=== PATIENT | male | born 1955 | race African-American/Black ===

== ENCOUNTER 2019-08-20 07:35 | Emergency (ER) | payer MEDICAID ==
[~2019-08-20] VITALS: Ht 175.3 cm; Wt 90.0 kg
[2019-08-20 10:42] LABS: BASOPHILS % 0.5 % (0.0-2.0); EOSINOPHILS % 1.2 % (0.0-5.0); HEMATOCRIT. 45.6 % (42.0-52.0); HEMOGLOBIN. 14.8 g/dL (14.0-18.0); LYMPHOCYTES % 19.4 % (20.0-50.0); MEAN CORPUSCULAR HEMOGLOBIN 29.8 pg (28.0-32.0); NEUTROPHILS % 70.9 % (40.0-76.0); RED BLOOD CELL COUNT 4.96 mill/uL (4.7-6.1); RED CELL DISTRIBUTION WIDTH 15.8 % (11.6-14.6)
[2019-08-20 10:44] LABS: CHLORIDE 109 mEq/L (98-107)
[2019-08-20] MEDS ORDERED: ACETAMINOPHEN 325MG TABLET PO ONE (11:30)
[2019-08-20 11:37] LABS: MEAN PLATELET VOLUME 10.6 fl (7.4-10.4); PLATELET 141 x1000/uL (130-400)
[2019-08-20 11:38] LABS: PLATELET ESTIMATE NORMAL
[2019-08-20 11:49] VITALS: BP 165/87
== END 2019-08-20 12:29 | disposition home or self-care (01) ==
LOC: ER 07:35
DX: G89.29 Other chronic pain (principal); M79.672 Pain in left foot; M79.671 Pain in right foot; I10 Essential (primary) hypertension; F17.210 Nicotine dependence, cigarettes, uncomplicated
CPT/HCPCS: 36415; 71045; 80048; 83880; 85025; 93970; 99284

== ENCOUNTER 2020-07-19 19:16 | Emergency (ER) | payer MEDICAID ==
[~2020-07-19] VITALS: Ht 177.8 cm; Wt 117.0 kg
[2020-07-19] MEDS ORDERED: ALBUTEROL (0.083%) 2.5MG/3ML NEB HHN STA (19:27)
[2020-07-19] MEDS ORDERED: METHYLPREDNISOLONE SOD SUCC 125 MG/2 ML VIAL IV STA (19:27)
[2020-07-19] MEDS ORDERED: IPRATROPIUM BROMIDE (0.02%) 0.5MG/2.5ML NEB HHN STA (19:27)
[2020-07-19 21:06] LABS: BASOPHILS % 0.3 % (0.0-2.0); EOSINOPHILS % 2.1 % (0.0-5.0); HEMATOCRIT. 38.4 % (42.0-52.0); HEMOGLOBIN. 12.8 g/dL (14.0-18.0); MEAN CORPUSCULAR HEMOGLOBIN 32.3 pg (28.0-32.0); MEAN CORPUSCULAR VOLUME 96.7 fL (80.0-94.0); MEAN PLATELET VOLUME 11.6 fl (7.4-10.4); MONOCYTES % 14.5 % (2.0-8.0); NEUTROPHILS % 68.1 % (40.0-76.0); PLATELET 211 x1000/uL (130-400); RED BLOOD CELL COUNT 3.97 mill/uL (4.7-6.1); RED CELL DISTRIBUTION WIDTH 15.3 % (11.6-14.6)
[2020-07-19 21:13] LABS: CHLORIDE 108 mEq/L (98-107)
[2020-07-19] MEDS ORDERED: ONDANSETRON HCL 4MG/2ML INJ IV PRN (23:15)
[2020-07-19] MEDS ORDERED: ALBUTEROL 6.7GM HFA INHALER ORI PRN (23:15)
[2020-07-19] MEDS ORDERED: ACETAMINOPHEN 325MG TABLET PO PRN (23:15)
[2020-07-20] MEDS ORDERED: METHYLPREDNISOLONE SOD SUCC 40 MG/ML VIAL IV SCH (04:00)
[2020-07-20 05:00] VITALS: BP 182/109
[2020-07-20] MEDS ORDERED: LOSARTAN POTASSIUM 100 MG TABLET PO SCH (12:00)
== END 2020-07-20 12:13 | disposition home or self-care (01) ==
LOC: ER 19:16 → EDBEDREQTM 22:00 → EDBEDREQ 22:00 → ENRESERV 07-20 10:29 → ER 07-20 12:13 → CANBEDREQ 07-21 16:07
DX: J44.1 Chronic obstructive pulmonary disease with (acute) exacerbation (principal); R06.03 Acute respiratory distress; I10 Essential (primary) hypertension; F17.210 Nicotine dependence, cigarettes, uncomplicated; Z71.6 Tobacco abuse counseling; Z20.828 Contact with and (suspected) exposure to other viral communicable diseases
CPT/HCPCS: 36415; 71045; 80053; 83880; 84484; 85025; 87635; 94640; 96374; 96376; 99285; 99406; J2920; J2930; Z7610

== ENCOUNTER 2021-07-15 | Inpatient (IN) | payer MEDICAID ==
[~2021-07-15] VITALS: Ht 182.9 cm; Wt 114.3 kg
[2021-07-15 03:04] LABS: BASOPHILS % 0.4 % (0.0-2.0); HEMATOCRIT. 43.6 % (42.0-52.0); HEMOGLOBIN. 13.9 g/dL (14.0-18.0); LYMPHOCYTES % 7.9 % (20.0-50.0); MEAN CORPUSCULAR HEMOGLOBIN 31.2 pg (28.0-32.0); MEAN CORPUSCULAR VOLUME 97.6 fL (80.0-94.0); MEAN PLATELET VOLUME 10.6 fl (7.4-10.4); MONOCYTES % 9.2 % (2.0-8.0); NEUTROPHILS % 82.5 % (40.0-76.0); PLATELET 208 x1000/uL (130-400); RED BLOOD CELL COUNT 4.47 mill/uL (4.7-6.1); RED CELL DISTRIBUTION WIDTH 16.6 % (11.6-14.6)
[2021-07-15 03:12] LABS: CHLORIDE 106 mEq/L (98-107)
[2021-07-15] MEDS ORDERED: IPRATROPIUM BROMIDE (0.02%) 0.5MG/2.5ML NEB HHN STA (05:43)
[2021-07-15] MEDS ORDERED: MAGNESIUM 2 G PREMIX 50 ML IV ONE (05:45)
[2021-07-15] MEDS ORDERED: FUROSEMIDE 40MG/4ML VIAL IVP ONE (05:45)
[2021-07-15] MEDS ORDERED: ALBUTEROL (0.083%) 2.5MG/3ML NEB HHN SCH (06:00)
[2021-07-15] MEDS ORDERED: CEFTRIAXONE 1 G PREMIX 50 ML IV ONE (06:45)
[2021-07-15] MEDS ORDERED: AZITHROMYCIN 500MG/250ML 250 ML IV ONE (06:45)
[2021-07-15] MEDS ORDERED: METHYLPREDNISOLONE SOD SUCC 125 MG/2 ML VIAL IV STA (07:29)
[2021-07-15] MEDS ORDERED: HYDRALAZINE 20MG/ML VIAL IV PRN ×2 (13:30)
[2021-07-15] MEDS ORDERED: ONDANSETRON HCL 4MG/2ML INJ IV PRN (14:00)
[2021-07-15] MEDS ORDERED: ACETAMINOPHEN 325MG TABLET PO PRN (14:00)
[2021-07-15] MEDS: AMLODIPINE 10MG TABLET PO SCH (14:40)
[2021-07-15] MEDS: ENOXAPARIN 40MG/0.4ML SYR SUBCUT SCH (18:00)
[2021-07-16] VITALS (7 sets, daily range): BP systolic 118–156; BP diastolic 59–88
[2021-07-16 01:11] LABS: *AMPHETAMINES SCREEN URINE NEGATIVE (NEGATIVE); *BARBITURATES SCREEN URINE NEGATIVE (NEGATIVE); *BENZODIAZEPINES SCREEN URINE NEGATIVE (NEGATIVE); *COCAINE SCREEN URINE NEGATIVE (NEGATIVE); CANNABINOID URINE SCREEN NEGATIVE (NEGATIVE); METHADONE URINE SCREEN NEGATIVE (NEGATIVE)
[2021-07-16 01:12] LABS: OPIATES URINE SCREEN NEGATIVE (NEGATIVE); PHENCYCLIDINE URINE SCREEN NEGATIVE (NEGATIVE)
[2021-07-16 02:06] LABS: BG CARBOXYHEMOGLOBIN 0.6 % (0.5-1.5); BG DEOXYHEMOGLOBIN 2.4 % (0.0-5.0); BG FRACTION INSPIRED OXYGEN 40; BG HCO3 ACT 43.3 mmol/L (22.0-26.0); BG METHEMOGLOBIN 0.5 % (0.0-1.5); BG OXYGEN SATURATION 97.6 % (92.0-98.5); BG OXYHEMOGLOBIN 96.5 % (94.0-97.0); BG PH 7.229 (7.350-7.450); BG SAMPLE SITE RIGHT RADIAL; BG TOTAL HEMOGLOBIN 14.1 g/dL (12.0-18.0); BG VENT MODE NASAL CANNULA
[2021-07-16] MEDS: ENOXAPARIN 40MG/0.4ML SYR SUBCUT SCH (05:44)
[2021-07-16 07:22] LABS: BASOPHILS % 0.3 % (0.0-2.0); HEMATOCRIT. 39.4 % (42.0-52.0); HEMOGLOBIN. 12.9 g/dL (14.0-18.0); LYMPHOCYTES % 9.1 % (20.0-50.0); MEAN CORPUSCULAR HEMOGLOBIN 32.1 pg (28.0-32.0); MEAN CORPUSCULAR VOLUME 97.8 fL (80.0-94.0); MEAN PLATELET VOLUME 10.3 fl (7.4-10.4); MONOCYTES % 12.7 % (2.0-8.0); NEUTROPHILS % 77.9 % (40.0-76.0); PLATELET 189 x1000/uL (130-400); RED BLOOD CELL COUNT 4.03 mill/uL (4.7-6.1); RED CELL DISTRIBUTION WIDTH 16.5 % (11.6-14.6)
[2021-07-16 07:51] LABS: CHLORIDE 104 mEq/L (98-107)
[2021-07-16] MEDS ORDERED: CEFTRIAXONE 1 G PREMIX 50 ML IV SCH (08:00)
[2021-07-16] MEDS: AMLODIPINE 10MG TABLET PO SCH (09:00)
[2021-07-16] MEDS ORDERED: AZITHROMYCIN 500 MG in DEXT 5% WATER 250 ML IV SCH (09:00)
[2021-07-16] MEDS ORDERED: LORAZEPAM 2MG/ML CPJ IV PRN (10:45)
[2021-07-16 10:56] LABS: BG CARBOXYHEMOGLOBIN 0.5 % (0.5-1.5); BG DEOXYHEMOGLOBIN 5.2 % (0.0-5.0); BG FRACTION INSPIRED OXYGEN 28; BG HCO3 ACT 41.2 mmol/L (22.0-26.0); BG METHEMOGLOBIN 0.3 % (0.0-1.5); BG OXYGEN SATURATION 94.8 % (92.0-98.5); BG PCO2 77.3 mmHg (35.0-45.0); BG PH 7.345 (7.350-7.450); BG SAMPLE SITE RIGHT RADIAL; BG VENT MODE NASAL CANNULA
[2021-07-16] MEDS ORDERED: FUROSEMIDE 20MG/2ML VIAL IVP NR (11:15)
[2021-07-16] MEDS: CEFTRIAXONE 1,000 MG in DEXTROSE 5% WATER 50 ML IV SCH (12:19)
[2021-07-16] MEDS: AZITHROMYCIN 500 MG in DEXT 5% WATER 250 ML IV SCH (13:08)
[2021-07-16] MEDS ORDERED: ALBUTEROL (0.083%) 2.5MG/3ML NEB HHN PRN (17:15)
[2021-07-16] MEDS: METHYLPREDNISOLONE SOD SUCC 40 MG/ML VIAL IV SCH (17:53)
[2021-07-16] MEDS: ENOXAPARIN 30MG/0.3ML SYR SUBCUT SCH (20:15)
[2021-07-16] MEDS: IPRATROPIUM/ALBUTEROL 0.5-3(2.5)MG/3ML NEB HHN SCH (21:25)
[2021-07-17] VITALS (8 sets, daily range): BP systolic 118–164; BP diastolic 74–102
[2021-07-17] MEDS: IPRATROPIUM/ALBUTEROL 0.5-3(2.5)MG/3ML NEB HHN SCH ×6 (01:37→20:30)
[2021-07-17] MEDS: METHYLPREDNISOLONE SOD SUCC 40 MG/ML VIAL IV SCH ×2 (05:06→17:11)
[2021-07-17 06:58] LABS: BASOPHILS % 0.1 % (0.0-2.0); EOSINOPHILS % 0.8 % (0.0-5.0); HEMATOCRIT. 38.6 % (42.0-52.0); HEMOGLOBIN. 12.7 g/dL (14.0-18.0); LYMPHOCYTES % 19.3 % (20.0-50.0); MEAN CORPUSCULAR HEMOGLOBIN 31.9 pg (28.0-32.0); MEAN CORPUSCULAR VOLUME 96.9 fL (80.0-94.0); MEAN PLATELET VOLUME 10.7 fl (7.4-10.4); MONOCYTES % 13.7 % (2.0-8.0); NEUTROPHILS % 66.1 % (40.0-76.0); PLATELET 177 x1000/uL (130-400); RED BLOOD CELL COUNT 3.99 mill/uL (4.7-6.1); RED CELL DISTRIBUTION WIDTH 16.3 % (11.6-14.6)
[2021-07-17 07:55] LABS: CHLORIDE 102 mEq/L (98-107)
[2021-07-17] MEDS: AMLODIPINE 10MG TABLET PO SCH (09:26)
[2021-07-17] MEDS: ENOXAPARIN 30MG/0.3ML SYR SUBCUT SCH ×2 (09:26→20:46)
[2021-07-17] MEDS: CEFTRIAXONE 1,000 MG in DEXTROSE 5% WATER 50 ML IV SCH (11:20)
[2021-07-17] MEDS ORDERED: FUROSEMIDE 20MG/2ML VIAL IVP NR (11:30)
[2021-07-17] MEDS: AZITHROMYCIN 500 MG in DEXT 5% WATER 250 ML IV SCH (12:17)
[2021-07-18] VITALS: BP 150/82
[2021-07-18] MEDS: IPRATROPIUM/ALBUTEROL 0.5-3(2.5)MG/3ML NEB HHN SCH ×2 (00:23→04:00)
[2021-07-18 04:00] VITALS: BP 155/87
[2021-07-18] MEDS: METHYLPREDNISOLONE SOD SUCC 40 MG/ML VIAL IV SCH (05:12)
[2021-07-18 07:39] VITALS: BP 128/92
[2021-07-18] MEDS: ENOXAPARIN 30MG/0.3ML SYR SUBCUT SCH (08:38)
[2021-07-18] MEDS: AMLODIPINE 10MG TABLET PO SCH (08:38)
[2021-07-19] MEDS ORDERED: AZITHROMYCIN 500 MG TABLET PO SCH (09:00)
== END 2021-07-18 10:00 | disposition left against medical advice (07) | DRG 139 ==
LOC: ER 00:15 → MICUSO 07:24 → 6WST 23:36 → 5EST 07-16 10:29
PROVIDERS: ADMIT Internal Medicine; ATTEND Internal Medicine
PROC: 5A09357 Assistance with Respiratory Ventilation, Less than 24 Consecutive Hours, Continuous Positive Airway Pressure (ICD-10-PCS; principal; 2021-07-16)
DX: J18.9 Pneumonia, unspecified organism (principal); J96.22 Acute and chronic respiratory failure with hypercapnia; E44.1 Mild protein-calorie malnutrition; I50.9 Heart failure, unspecified; I11.0 Hypertensive heart disease with heart failure; J44.1 Chronic obstructive pulmonary disease with (acute) exacerbation; E66.9 Obesity, unspecified; F17.210 Nicotine dependence, cigarettes, uncomplicated; Z20.822 Contact with and (suspected) exposure to COVID-19; E87.5 Hyperkalemia; J44.0 Chronic obstructive pulmonary disease with (acute) lower respiratory infection; Z86.11 Personal history of tuberculosis; Z59.00 Homelessness unspecified; Z71.6 Tobacco abuse counseling; Z68.34 Body mass index [BMI] 34.0-34.9, adult
CPT/HCPCS: 36415; 36600; 71045; 80048; 80053; 80305; 82375; 82805; 83880; 84484; 85025; 87426; 93005; 94640; 94660; 99285; J0360; J0456; J0696; J1650; J1940; J2405; J2920; J2930; J3475; J7060; U0003; U0005